=== PATIENT | female | born 1985 | race Caucasian/White ===

== ENCOUNTER 2018-01-06 17:02 | Inpatient (IN) | payer SELFPAY ==
[~2018-01-06] VITALS: Ht 154.9 cm; Wt 88.0 kg
[2018-01-06 17:46] LABS: BILIRUBIN,URINE NEGATIVE (NEGATIVE); CLARITY,URINE CLOUDY (CLEAR); COLOR,URINE RED (YELLOW); KETONES,URINE NEGATIVE (NEGATIVE); LEUKOCYTE ESTERASE ,URINE NEGATIVE (NEGATIVE); NITRITE,URINE NEGATIVE (NEGATIVE); PREGNANCY TEST, URINE NEGATIVE (NEGATIVE); PROTEIN,URINE DIPSTICK 1+ (NEGATIVE); URINE UROBILINOGEN 0.2 mg/dL (0.2 - 1)
[2018-01-06 17:47] LABS: BASOPHILS % 0.2 % (0.0-1.0); EOSINOPHILS # (AUTO) 0.1 (0.0-0.4); EOSINOPHILS % 1.2 % (0.0-6.0); HEMATOCRIT 37.5 % (34.2-44.1); HEMOGLOBIN 12.7 g/dL (12.0-16.0); LYMPHOCYTES # (AUTO) 1.6 (1.0-3.2); LYMPHOCYTES % 17.3 % (18.0-39.1); MEAN CORPUSCULAR HEMOGLOBIN 30.8 pg (28-32); MEAN CORPUSCULAR HGB CONC 33.9 g/dL (31-35); MEAN CORPUSCULAR VOLUME 90.8 fL (81-99); MONOCYTES # (AUTO) 0.7 (0.2-0.8); MONOCYTES % 7.3 % (4.4-11.3); NEUTROPHILS # (AUTO) 6.9 (2.1-6.9); NEUTROPHILS % 73.7 % (38.7-80.0); PLATELET COUNT 169 x10e3/uL (140-360); RED BLOOD COUNT 4.13 x10e6/uL (3.6-5.1); RED CELL DISTRIBUTION WIDTH 13.5 % (11.7-14.4)
[2018-01-06 17:55] LABS: BACTERIA,URINE RARE /HPF; MUCUS,URINE RARE (RARE); RBC,URINE >50 /HPF (0-5); WBC,URINE (MAN) 0-5 /HPF (0-5)
[2018-01-06] MEDS ORDERED: ONDANSETRON HCL INJ 2 MG/ML VIAL IV STA (18:00)
[2018-01-06] MEDS ORDERED: MORPHINE SULFATE INJ 4 MG/ML INJ IV STA (18:00)
[2018-01-06] MEDS ORDERED: SODIUM CHLORIDE 0.9% 1000ML 1,000 ML IV STA (18:00)
[2018-01-06 18:01] LABS: ALANINE AMINOTRANSFERASE 17 IU/L (0-55); ALBUMIN 3.6 g/dL (3.5-5.0); ALBUMIN/GLOBULIN RATIO 1.2 (0.8-2.0); ALKALINE PHOSPHATASE 50 IU/L (40-150); AMYLASE 47 U/L (25-125); ANION GAP 10.6 mmol/L (8-16); BLOOD UREA NITROGEN 10 mg/dL (7-26); BUN/CREATININE RATIO 13 (6-25); CALCIUM 8.5 mg/dL (8.4-10.2); CARBON DIOXIDE 26 mmol/L (22-29); CHLORIDE 109 mmol/L (98-107); CREATININE, SERUM 0.76 mg/dL (0.57-1.11); EST GLOMERULAR FILTRATION RATE > 60 ML/MIN (60-); GLUCOSE 106 mg/dL (74-118); LIPASE 22 U/L (8-78); POTASSIUM 3.6 mmol/L (3.5-5.1); SODIUM 142 mmol/L (136-145)
[2018-01-06] MEDS ORDERED: KETOROLAC TROMETHAMINE 30 MG/ML VIAL IV STA (18:29)
--- NOTE | 2018-01-06 20:21 | Diagnostic Imaging Report ---
EXAM: CT Abdomen and Pelvis WITH contrast INDICATION: \S\r/o appy \[id number] \S\[id number] COMPARISON: None. TECHNIQUE: Abdomen and pelvis were scanned utilizing a multidetector helical scanner from the lung base to the pubic symphysis after administration of IV contrast. Coronal and sagittal reformations were obtained. Routine protocol was performed. Scan was performed when during portal venous phase. IV CONTRAST: 100 mL of Isovue-370 ORAL CONTRAST: Water COMPLICATIONS: None RADIATION DOSE: Total DLP: ... mGy*cm Estimated effective dose: (DLP x 0.015 x size factor) mSv CTDIvol has been reviewed. It is below the limits set by the Radiation Protocol Committee (RPC). FINDINGS: LINES and TUBES: None. LOWER THORAX: Unremarkable HEPATOBILIARY: No focal hepatic lesions. No biliary ductal dilation. GALLBLADDER: No radio-opaque stones or sludge. No wall thickening. SPLEEN: No splenomegaly. PANCREAS: No focal masses or ductal dilatation. ADRENALS: No adrenal nodules KIDNEYS/URETERS: Kidneys enhance symmetrically. No hydronephrosis. No cystic or solid mass lesions. No stones. GI TRACT: No abnormal distention, wall thickening, or evidence of bowel obstruction. Appendix is mildly dilated (coronal image 31) measuring 9 mm in diameter and appears fluid filled. Mild periappendiceal inflammatory changes and fluid. PELVIC ORGANS/BLADDER: Unremarkable. LYMPH NODES: No lymphadenopathy. VESSELS: Unremarkable. PERITONEUM / RETROPERITONEUM: Trace free fluid in the anterior cul-de-sac. No free air. BONES: Unremarkable. SOFT TISSUES: Unremarkable. IMPRESSION: Acute uncomplicated appendicitis. Findings discussed with Dr. Bartlett on 01/06/2018 at 8:13 PM. Signed by: DR. Charles Marrero MD on 01/06/2018 8:17 PM
[2018-01-06] MEDS ORDERED: MORPHINE SULFATE 2 MG/ML SYR IV PRN (20:30)
[2018-01-06] MEDS ORDERED: LEVOFLOXACIN 500MG/D5W 100ML 100 ML IV SCH (20:45)
[2018-01-06] MEDS: SODIUM CHLORIDE 0.9% 1000ML 1,000 ML IV SCH (21:29)
[2018-01-06] MEDS: ONDANSETRON HCL INJ 2 MG/ML VIAL IV PRN (21:44)
[2018-01-06 21:48] VITALS: BP 117/61
[2018-01-06] MEDS: HYDROMORPHONE 1MG/1ML INJ IV PRN (22:00)
[2018-01-06] MEDS ORDERED: PIPER-TAZ 3.375 GM / NS 50ML IV SCH (22:00)
[2018-01-06] MEDS: MORPHINE SULFATE INJ 4 MG/ML INJ IV PRN (23:02)
[2018-01-07] VITALS (7 sets, daily range): BP systolic 99–117; BP diastolic 59–80
[2018-01-07] MEDS ORDERED: IOPAMIDOL 370 MG/ML 200 ML INFUS..BTL INJ ONE (00:36)
[2018-01-07] MEDS ORDERED: SODIUM CHLORIDE 0.9% 50ML 50 ML ONE (00:36)
[2018-01-07] MEDS: ONDANSETRON HCL INJ 2 MG/ML VIAL IV PRN ×5 (02:14→22:47)
[2018-01-07] MEDS: HYDROMORPHONE 1MG/1ML INJ IV PRN ×5 (02:14→22:47)
[2018-01-07] MEDS: MORPHINE SULFATE INJ 4 MG/ML INJ IV PRN ×2 (03:39→08:40)
[2018-01-07 05:52] LABS: BASOPHILS % 0.1 % (0.0-1.0); EOSINOPHILS # (AUTO) 0.1 (0.0-0.4); EOSINOPHILS % 0.6 % (0.0-6.0); HEMATOCRIT 35.8 % (34.2-44.1); HEMOGLOBIN 11.7 g/dL (12.0-16.0); LYMPHOCYTES # (AUTO) 1.2 (1.0-3.2); LYMPHOCYTES % 11.6 % (18.0-39.1); MEAN CORPUSCULAR HEMOGLOBIN 30.5 pg (28-32); MEAN CORPUSCULAR HGB CONC 32.7 g/dL (31-35); MEAN CORPUSCULAR VOLUME 93.2 fL (81-99); MONOCYTES # (AUTO) 0.9 (0.2-0.8); MONOCYTES % 8.2 % (4.4-11.3); NEUTROPHILS # (AUTO) 8.2 (2.1-6.9); NEUTROPHILS % 79.1 % (38.7-80.0); PLATELET COUNT 156 x10e3/uL (140-360); RED BLOOD COUNT 3.84 x10e6/uL (3.6-5.1); RED CELL DISTRIBUTION WIDTH 13.8 % (11.7-14.4)
[2018-01-07] MEDS: SODIUM CHLORIDE 0.9% 1000ML 1,000 ML IV SCH ×4 (06:17→23:30)
[2018-01-07 06:19] LABS: ALANINE AMINOTRANSFERASE 15 IU/L (0-55); ALBUMIN 3.4 g/dL (3.5-5.0); ALKALINE PHOSPHATASE 49 IU/L (40-150); ANION GAP 11.9 mmol/L (8-16); BLOOD UREA NITROGEN 9 mg/dL (7-26); BUN/CREATININE RATIO 12 (6-25); CALCIUM 8.4 mg/dL (8.4-10.2); CARBON DIOXIDE 26 mmol/L (22-29); CHLORIDE 104 mmol/L (98-107); CREATININE, SERUM 0.75 mg/dL (0.57-1.11); EST GLOMERULAR FILTRATION RATE > 60 ML/MIN (60-); GLUCOSE 110 mg/dL (74-118); POTASSIUM 3.9 mmol/L (3.5-5.1); SODIUM 138 mmol/L (136-145)
[2018-01-07 06:34] LABS: ALBUMIN/GLOBULIN RATIO 1.1 (0.8-2.0)
--- NOTE | 2018-01-07 06:36 | Consultation ---
DATE OF CONSULTATION: January 07, 2018 HISTORY OF PRESENT ILLNESS: Patient is a 32-year-old female, who presents with complaint of abdominal pain. She has had pain a few days ago. She went to emergency room and was sent home. Pain, however, worsened yesterday and she came back to a different emergency room. Evaluation of CT scan of the abdomen and pelvis revealed findings suggestive of acute appendicitis. Patient says the pain is localized in right lower quadrant associated with nausea and vomiting. PAST MEDICAL HISTORY: Otherwise unremarkable. She has no chronic medical problems. No previous surgery. CURRENT MEDICATIONS: There are none. ALLERGIES: SHE HAS ALLERGY TO PENICILLIN, WHICH SHE SAYS CAUSED ANAPHYLACTIC REACTION. FAMILY HISTORY: Noncontributory. SOCIAL HISTORY: The patient smokes cigarettes about 3 cigarettes a day, formerly smoked 2 packs per day. She does not drink alcohol. REVIEW OF SYSTEMS: As stated above otherwise. She has had no fever, no weight loss. EXAM VITALS: Normal. She is afebrile. GENERAL: The patient is awake and alert, in no distress. HEENT: Unremarkable. Sclerae are nonicteric. NECK: No masses. LUNGS: Equal breath sounds are clear bilaterally. CARDIAC: Regular rate and rhythm. Normal S1, S2. Without murmur, S3, S4. There is no jugular venous distention. ABDOMEN: Tender in right lower quadrant with signs of peritonitis localized to right lower quadrant. There is no mass. There is no organomegaly. EXTREMITIES: No edema. Pulses are palpable. NEUROLOGIC: Grossly intact. LAB TESTS: The white blood cell count was normal with a slight left shift in differential. Hemoglobin and hematocrit are normal. Chemistries were normal. Urinalysis significant for blood in the urine. ASSESSMENT: A 32-year-old female with findings most suggestive of acute appendicitis. She will likely benefit from appendectomy. PLAN: To schedule for today. Procedure was explained to the patient including risks, benefits, and alternatives. She understands the procedures. She has had the opportunity to ask questions. She is aware of the possible need for open surgery. Thank you for asking me to see Ms. Cabrera. Job#: [id number] CQ
[2018-01-07] MEDS: METRONIDAZOLE 500MG/NS 100ML 100 ML IV SCH ×3 (09:00→17:25)
[2018-01-07] MEDS: FAMOTIDINE 20 MG/2 ML VIAL IV SCH ×2 (10:57→17:02)
[2018-01-07] MEDS ORDERED: MIDAZOLAM HCL 2 MG/2 ML VIAL ONE (11:02)
[2018-01-07] MEDS ORDERED: FENTANYL CITRATE/PF 100MCG/2 ML INJ ONE (11:02)
[2018-01-07] MEDS ORDERED: ONDANSETRON HCL INJ 2 MG/ML VIAL ONE (11:11)
[2018-01-07] MEDS ORDERED: KETOROLAC TROMETHAMINE 30 MG/ML VIAL ONE (11:11)
[2018-01-07] MEDS ORDERED: DEXAMETHASONE SOD PHOS INJ 4 MG/ML VIAL ONE (11:11)
[2018-01-07] MEDS ORDERED: LIDOCAINE HCL 2% LOCAL INJ 5 ML SDV VIAL INJ ONE (11:11)
[2018-01-07] MEDS ORDERED: SEVOFLURANE INHAL SOLN 250 ML PEN BTL ONE (11:11)
[2018-01-07] MEDS ORDERED: ROCURONIUM BROMIDE 10 MG/ML 5ML VIAL ONE (11:11)
[2018-01-07] MEDS ORDERED: PROPOFOL IV EMULSION 10 MG/ML 20 ML VIAL ONE (11:11)
[2018-01-07] MEDS ORDERED: BUPIVACAINE HCL 0.5% INJ 30 ML VIAL INJ ONE (15:01)
[2018-01-07] MEDS ORDERED: MORPHINE SULFATE 5 MG/ML VIAL IV PRN (15:45)
[2018-01-07] MEDS ORDERED: LEVOFLOXACIN 500MG/D5W 100ML 100 ML IV SCH (16:00)
--- NOTE | 2018-01-07 16:47 | Operative Report ---
DATE OF PROCEDURE: January 07, 2018 PREOPERATIVE DIAGNOSIS: Acute appendicitis. POSTOPERATIVE DIAGNOSIS: Acute appendicitis. PROCEDURE PERFORMED: Diagnostic laparoscopy, laparoscopic appendectomy. FLATWORK PRESSER: None. ANESTHESIA: General. INDICATIONS AND FINDINGS: Patient a 32-year-old female who presented with complaint of abdominal pain that she had for about 3 days localized to right lower quadrant. Evaluation suggested acute appendicitis. At surgery, the patient had an appendix that was mildly erythematous, mildly dilated and there was also some purulent fluid in the pelvis. TECHNIQUE: After adequate general endotracheal anesthesia with the patient in the supine position, the abdomen was prepped and draped in sterile fashion with Lv solution. Skin in the umbilicus was infiltrated with 1/2% Marcaine. Incision was made in the umbilicus. Abdominal wall was elevated and Veress needle was introduced. Pneumoperitoneum was then created. A 10 mm trocar and cannula was then passed through the umbilical wound. Laparoscopic camera was introduced. Initial laparoscopy revealed some purulent fluid in the pelvis. Liver and stomach appeared normal. Small bowel was seen and appeared normal. A 12 mm trocar and cannula was placed suprapubically and a 5 mm trocar and cannula placed in the right upper quadrant. These were placed under direct vision. Cecum was elevated and the appendix was identified. Appendix appeared mildly erythematous, mildly dilated. A window was created between the base of the appendix and mesoappendix. Base of the appendix was divided close to the cecum with Endo KAREEM stapler. Mesoappendix also divided with Endo KAREEM stapler. Hemostasis at each staple line was seen to be adequate. Appendix was placed into an Endo pouch and brought out through the suprapubic cannula. Inspection of the abdomen revealed some purulent fluid in the pelvis. This was aspirated. The right tube and ovary appeared normal. There were no abnormalities of small bowel or small bowel mesentery. The peritoneal cavity was irrigated with saline. All fluid aspirated and inspected for hemostasis which was seen to be adequate. Irrigated once again with saline. All fluid aspirated from below the liver from right side of the abdomen and from the pelvis was inspected once again for hemostasis which was seen to be adequate. Instruments and cannulas were then removed. Pneumoperitoneum was evacuated. Wounds were then closed. Fascia in the umbilical and suprapubic wound closed with 0 Vicryl. Skin to all wounds closed with adonis. Sterile dressings applied to each wound. Patient tolerated procedure well. Estimated blood loss was 10 mL. There were no complications. All counts were correct. Patient was taken to the recovery room satisfactory condition. Job#: [id number] GH cc:CHESTER LIN MD
[2018-01-07] MEDS: NICOTINE 7 MG PATCH TOP SCH (18:30)
[2018-01-07] MEDS: MORPHINE SULFATE 2 MG/ML SYR IV PRN (20:00)
[2018-01-08] VITALS: BP 107/65
[2018-01-08] MEDS: METRONIDAZOLE 500MG/NS 100ML 100 ML IV SCH ×3 (00:20→12:23)
[2018-01-08] MEDS: MORPHINE SULFATE 2 MG/ML SYR IV PRN (01:15)
[2018-01-08 03:30] LABS: HEMATOCRIT 33.7 % (34.2-44.1); HEMOGLOBIN 11.3 g/dL (12.0-16.0); LYMPHOCYTES # (AUTO) 0.7 (1.0-3.2); LYMPHOCYTES % 10.2 % (18.0-39.1); MEAN CORPUSCULAR HEMOGLOBIN 31.4 pg (28-32); MEAN CORPUSCULAR HGB CONC 33.5 g/dL (31-35); MEAN CORPUSCULAR VOLUME 93.6 fL (81-99); MONOCYTES # (AUTO) 0.4 (0.2-0.8); MONOCYTES % 5.1 % (4.4-11.3); NEUTROPHILS # (AUTO) 5.8 (2.1-6.9); NEUTROPHILS % 84.6 % (38.7-80.0); PLATELET COUNT 147 x10e3/uL (140-360); RED CELL DISTRIBUTION WIDTH 13.7 % (11.7-14.4)
[2018-01-08 03:42] LABS: BLOOD UREA NITROGEN 8 mg/dL (7-26); BUN/CREATININE RATIO 11 (6-25); CALCIUM 8.8 mg/dL (8.4-10.2); CARBON DIOXIDE 25 mmol/L (22-29); CHLORIDE 109 mmol/L (98-107); CREATININE, SERUM 0.76 mg/dL (0.57-1.11); EST GLOMERULAR FILTRATION RATE > 60 ML/MIN (60-); GLUCOSE 112 mg/dL (74-118); MAGNESIUM 1.9 MG/DL (1.3-2.1); SODIUM 140 mmol/L (136-145)
[2018-01-08] MEDS: ONDANSETRON HCL INJ 2 MG/ML VIAL IV PRN (03:44)
[2018-01-08 04:00] VITALS: BP 115/78
[2018-01-08 04:23] LABS: CREATINE KINASE 163 IU/L (29-168)
[2018-01-08 08:00] VITALS: BP 122/66
[2018-01-08] MEDS: FAMOTIDINE 20 MG/2 ML VIAL IV SCH (08:05)
[2018-01-08] MEDS: NICOTINE 7 MG PATCH TOP SCH (08:06)
[2018-01-08 08:12] VITALS: BP 122/66
[2018-01-08] MEDS: HYDROCODONE/APAP 5MG-325MG TAB PO PRN ×2 (08:15→12:32)
[2018-01-08] MEDS: SODIUM CHLORIDE 0.9% 1000ML 1,000 ML IV SCH (11:12)
[2018-01-08] MEDS ORDERED: TYLENOL # 31 EA PO (12:40)
[2018-01-08 12:57] VITALS: BP 122/73
--- NOTE | 2018-01-09 03:55 | Discharge Summary ---
ADMISSION DIAGNOSIS: Appendicitis. DISCHARGE DIAGNOSIS: Appendicitis. Patient has no previous medical history and no surgical history. HOSPITAL COURSE: A 32-year-old female complains of right lower quadrant abdominal pain that began yesterday. Throughout the day, the pain continued to worsen; so, she came to the ER. Upon arrival to the ER, patient had a CAT scan which showed acute uncomplicated appendicitis. Surgery was consulted. Patient started on IV antibiotics and fluids. Patient went in for surgery on January 07, 2018, and had a laparoscopic appendectomy. After the surgery, patient tolerated p.o. well and is passing gas and has already had a bowel movement. Patient is cleared for discharge per surgery and will follow up as discussed. She will also follow up with primary care in 1 to 2 weeks. Patient understands discharge instructions and followup and agrees to plan. Vital signs stable. Patient afebrile. Dictated by Pinky Wilhelm NP CHESTER LIN MD Job#: [id number]
== END 2018-01-08 13:56 | disposition home or self-care (01) | DRG 343 ==
LOC: ER 17:02 → ERHOLD 20:17 → MED/SURG 22:50
PROVIDERS: ADMIT Internal Medicine; ATTEND Internal Medicine
PROC: 0DTJ4ZZ Resection of Appendix, Percutaneous Endoscopic Approach (ICD-10-PCS; principal; 2018-01-07 16:00)
DX: K35.80 Unspecified acute appendicitis (principal); E88.09 Other disorders of plasma-protein metabolism, not elsewhere classified; I95.9 Hypotension, unspecified; F17.210 Nicotine dependence, cigarettes, uncomplicated; Z88.0 Allergy status to penicillin
CPT/HCPCS: 36415; 74177; 80048; 80053; 81001; 81025; 82150; 82550; 82553; 83690; 83735; 84484; 85025; 88304; 93041; 99284; J1100; J1170; J1885; J1956; J2001; J2250; J2270; J2405; J7030; Q9967

== ENCOUNTER 2018-01-25 07:58 | Emergency (ER) | payer SELFPAY ==
[~2018-01-25 07:58] MED LIST: TYLENOL # 31 EA PO
== END 2018-01-25 08:20 | disposition left against medical advice (07) ==
LOC: ER 08:00
DX: M54.5 Low back pain (principal)

== ENCOUNTER 2018-02-25 23:10 | Emergency (ER) | payer SELFPAY ==
[~2018-02-25] VITALS: Ht 154.9 cm; Wt 88.0 kg
[2018-02-25] MEDS ORDERED: IBUPROFEN 200 MG TAB PO STA (23:36)
[2018-02-25] MEDS ORDERED: ACETAMINOPHEN 325 MG TAB PO ONE (23:45)
[2018-02-25] MEDS ORDERED: ONDANSETRON HCL 4 MG ORAL DISINTEGRATING TAB PO ONE (23:45)
[2018-02-25 23:59] LABS: BILIRUBIN,URINE NEGATIVE (NEGATIVE); CLARITY,URINE CLEAR (CLEAR); COLOR,URINE YELLOW (YELLOW); KETONES,URINE NEGATIVE (NEGATIVE); LEUKOCYTE ESTERASE ,URINE NEGATIVE (NEGATIVE); NITRITE,URINE NEGATIVE (NEGATIVE); PROTEIN,URINE DIPSTICK NEGATIVE (NEGATIVE); URINE UROBILINOGEN 0.2 mg/dL (0.2 - 1)
[2018-02-26] LABS: EPITHELIAL CELLS,URINE FEW /LPF; RBC,URINE 0-5 /HPF (0-5); WBC,URINE (MAN) 0-5 /HPF (0-5)
[2018-02-26 00:23] VITALS: BP 114/76
[2018-02-26] MEDS ORDERED: CEFTRIAXONE SOD 1 GM VIAL IM ONE (00:30)
[2018-02-26] MEDS: LIDOCAINE HCL 1% LOCAL INJ 20 ML VIAL INJ ONE ×2 (01:55→01:56)
[2018-02-26] MEDS ORDERED: LIDOCAINE HCL 1% 2 ML AMP ONE (01:58)
[2018-02-26] MEDS ORDERED: LIDOCAINE 1% 5ML-MPF INJ ONE (02:00)
== END 2018-02-26 01:18 | disposition home or self-care (01) ==
LOC: ER 23:10
DX: R30.0 Dysuria (principal); R31.9 Hematuria, unspecified; R10.2 Pelvic and perineal pain
CPT/HCPCS: 81001; 81025; 99283; J0696; J2001

== ENCOUNTER 2018-03-31 07:34 | Emergency (ER) | payer SELFPAY ==
[~2018-03-31] VITALS: Ht 154.9 cm; Wt 88.0 kg
--- NOTE | 2018-03-31 09:35 | Diagnostic Imaging Report ---
PROCEDURE:X-RAY LEFT KNEE, THREE OR MORE VIEWS COMPARISON:None. INDICATIONS:LEFT KNEE PAIN FINDINGS: The bones are well-mineralized. There are no fractures, subluxations, lytic or blastic lesions. There is no evidence of a joint effusion. CONCLUSION: Unremarkable left knee radiographs. Dictated by: RUTHIE DICKINSON M.D. on 03/31/2018 at 9:43 Electronically approved by: RUTHIE DICKINSON M.D. on 03/31/2018 at 9:43
== END 2018-03-31 10:03 | disposition left against medical advice (07) ==
LOC: ER 07:34
DX: M25.562 Pain in left knee (principal)
CPT/HCPCS: 81025; 99283

== ENCOUNTER 2018-05-21 23:12 | Emergency (ER) | payer SELFPAY ==
[~2018-05-21] VITALS: Ht 154.9 cm; Wt 85.3 kg
== END 2018-05-22 00:30 | disposition left against medical advice (07) ==
LOC: ER 23:12
DX: R11.10 Vomiting, unspecified (principal)
CPT/HCPCS: 99282

== ENCOUNTER 2018-09-05 19:54 | Emergency (ER) | payer OTHER ==
[~2018-09-05] VITALS: Ht 154.9 cm; Wt 85.3 kg
== END 2018-09-05 20:20 | disposition home or self-care (01) ==
LOC: FSED 19:54
DX: M54.5 Low back pain (principal)
CPT/HCPCS: 99283

== ENCOUNTER 2018-12-08 19:59 | Emergency (ER) | payer SELFPAY ==
[~2018-12-08] VITALS: Ht 154.9 cm; Wt 85.3 kg
[2018-12-08] MEDS ORDERED: PANTOPRAZOLE 40 MG 10ML VIAL IV NR (20:30)
[2018-12-08] MEDS ORDERED: KETOROLAC TROMETHAMINE 30 MG/ML VIAL IV NR (20:30)
[2018-12-08] MEDS ORDERED: SODIUM CHLORIDE 0.9% 1000ML 1,000 ML IV ONE (20:30)
[2018-12-08 20:43] LABS: BASOPHILS % 0.1 % (0.0-1.0); EOSINOPHILS # (AUTO) 0.3 (0.0-0.4); EOSINOPHILS % 2.9 % (0.0-6.0); HEMATOCRIT 40.8 % (34.2-44.1); HEMOGLOBIN 13.9 g/dL (12.0-16.0); LYMPHOCYTES # (AUTO) 2.8 (1.0-3.2); LYMPHOCYTES % 31.3 % (18.0-39.1); MEAN CORPUSCULAR HEMOGLOBIN 30.8 pg (28-32); MEAN CORPUSCULAR HGB CONC 34.1 g/dL (31-35); MEAN CORPUSCULAR VOLUME 90.5 fL (81-99); MONOCYTES # (AUTO) 0.6 (0.2-0.8); MONOCYTES % 6.9 % (4.4-11.3); NEUTROPHILS # (AUTO) 5.2 (2.1-6.9); NEUTROPHILS % 58.6 % (38.7-80.0); PLATELET COUNT 192 x10e3/uL (140-360); RED BLOOD COUNT 4.51 x10e6/uL (3.6-5.1); RED CELL DISTRIBUTION WIDTH 13.4 % (11.7-14.4)
[2018-12-08 21:10] LABS: ALANINE AMINOTRANSFERASE 21 IU/L (0-55); ALBUMIN/GLOBULIN RATIO 1.2 (0.8-2.0); ALKALINE PHOSPHATASE 57 IU/L (40-150); AMYLASE 53 U/L (25-125); ANION GAP 14.8 mmol/L (8-16); BLOOD UREA NITROGEN 13 mg/dL (7-26); BUN/CREATININE RATIO 17 (6-25); CALCIUM 9.6 mg/dL (8.4-10.2); CARBON DIOXIDE 23 mmol/L (22-29); CHLORIDE 105 mmol/L (98-107); CREATININE, SERUM 0.78 mg/dL (0.57-1.11); EST GLOMERULAR FILTRATION RATE > 60 ML/MIN (60-); GLUCOSE 117 mg/dL (74-118); LIPASE 31 U/L (8-78); POTASSIUM 3.8 mmol/L (3.5-5.1); SODIUM 139 mmol/L (136-145)
[2018-12-08] MEDS ORDERED: CIPROFLOXACIN250 MG PO (21:47)
[2018-12-08] MEDS ORDERED: FLAGYL500 MG PO (21:47)
[2018-12-08] MEDS ORDERED: ZOFRAN8 MG PO (21:50)
== END 2018-12-08 21:59 | disposition home or self-care (01) ==
LOC: ER 19:59
DX: R10.32 Left lower quadrant pain (principal); R10.84 Generalized abdominal pain; R19.7 Diarrhea, unspecified
CPT/HCPCS: 36415; 80053; 81025; 82150; 83690; 85025; 96374; 99283; C9113; J1885; J7030

== ENCOUNTER 2018-12-11 20:09 | Emergency (ER) | payer SELFPAY ==
[~2018-12-11] VITALS: Ht 154.9 cm; Wt 99.8 kg
[~2018-12-11 20:09] MED LIST changes: +CIPROFLOXACIN250 MG PO; +FLAGYL500 MG PO; +ZOFRAN8 MG PO
[2018-12-11] MEDS ORDERED: DICYCLOMINE HCL 20 MG/2 ML VIAL IM ONE (21:00)
[2018-12-11] MEDS ORDERED: KETOROLAC TROMETHAMINE 60 MG/2 ML VIAL IM ONE (21:00)
[2018-12-11 21:33] LABS: BASOPHILS % 0.3 % (0.0-1.0); EOSINOPHILS # (AUTO) 0.2 (0.0-0.4); EOSINOPHILS % 3.3 % (0.0-6.0); HEMATOCRIT 37.6 % (34.2-44.1); HEMOGLOBIN 12.8 g/dL (12.0-16.0); LYMPHOCYTES # (AUTO) 2.2 (1.0-3.2); MEAN CORPUSCULAR HEMOGLOBIN 30.8 pg (28-32); MEAN CORPUSCULAR VOLUME 90.4 fL (81-99); MONOCYTES # (AUTO) 0.7 (0.2-0.8); MONOCYTES % 10.5 % (4.4-11.3); NEUTROPHILS # (AUTO) 3.2 (2.1-6.9); NEUTROPHILS % 50.7 % (38.7-80.0); PLATELET COUNT 180 x10e3/uL (140-360); RED BLOOD COUNT 4.16 x10e6/uL (3.6-5.1); RED CELL DISTRIBUTION WIDTH 13.2 % (11.7-14.4)
[2018-12-11 21:52] LABS: ALANINE AMINOTRANSFERASE 24 IU/L (0-55); ALBUMIN 3.9 g/dL (3.5-5.0); ALBUMIN/GLOBULIN RATIO 1.3 (0.8-2.0); ALKALINE PHOSPHATASE 49 IU/L (40-150); ANION GAP 10.6 mmol/L (8-16); BLOOD UREA NITROGEN 16 mg/dL (7-26); BUN/CREATININE RATIO 21 (6-25); CARBON DIOXIDE 24 mmol/L (22-29); CHLORIDE 106 mmol/L (98-107); CREATININE, SERUM 0.77 mg/dL (0.57-1.11); EST GLOMERULAR FILTRATION RATE > 60 ML/MIN (60-); GLUCOSE 100 mg/dL (74-118); POTASSIUM 3.6 mmol/L (3.5-5.1); SODIUM 137 mmol/L (136-145)
[2018-12-11 22:04] LABS: BILIRUBIN,URINE NEGATIVE (NEGATIVE); CLARITY,URINE CLEAR (CLEAR); COLOR,URINE YELLOW (YELLOW); KETONES,URINE NEGATIVE (NEGATIVE); LEUKOCYTE ESTERASE ,URINE NEGATIVE (NEGATIVE); NITRITE,URINE NEGATIVE (NEGATIVE); PROTEIN,URINE DIPSTICK NEGATIVE (NEGATIVE); URINE UROBILINOGEN 0.2 mg/dL (0.2 - 1)
[2018-12-11 22:12] LABS: AMYLASE 52 U/L (25-125); LIPASE 30 U/L (8-78)
[2018-12-11 23:00] LABS: BACTERIA,URINE FEW /HPF; EPITHELIAL CELLS,URINE FEW /LPF; WBC,URINE (MAN) 0-5 /HPF (0-5)
--- NOTE | 2018-12-12 | Diagnostic Imaging Report ---
CT Abdomen and Pelvis without contrast INDICATION: Lower abdominal pain TECHNIQUE: Thin collimation axial images obtained from the diaphragm to the level of the pubic symphysis without nonionic intravenous contrast. Oral contrast was administered. Dose reduction techniques used: Automated exposure control, adjustment of the mAs and/or kVp according to patient size, standardized low-dose protocol, and/or iterative reconstruction technique. RADIATION DOSE: Total DLP: 659.27 mGy*cm Estimated effective dose: (DLP x 0.015 x size factor) mSv CTDIvol has been reviewed. It is below the limits set by the Radiation Protocol Committee (RPC). COMPARISON: CT abdomen/pelvis 05/09/2018. ABDOMEN FINDINGS: Lung Bases: Clear. The visualized portion of the mediastinum is normal. Liver: Normal in attenuation without mass. Gallbladder: Present and appears normal. No ductal dilatation. Pancreas: Normal attenuation without mass. Spleen: Normal size without mass. Adrenal Glands: No evidence for mass. Kidneys: Right: No renal calculus. No cortical mass or hydronephrosis Left: No renal calculus. No cortical mass or hydronephrosis Lymph Nodes: No enlarged abdominal or periaortic lymph nodes. Aorta: Normal in diameter. PELVIS FINDINGS: Bowel: Stomach: Normal. Small Bowel: Enteric contrast present throughout. No mural thickening or dilatation. Large Bowel: Moderate burden of stool throughout. No enteric contrast. No diverticulosis. Appendix: Absent. Bladder: Under distended. Ureters: No ureteral dilatation. Uterus: Present and normal in morphology. No adnexal mass. Peritoneum/retroperitoneum: No free fluid or fluid collection Soft tissues: Unremarkable.. Bones: Unremarkable for age. IMPRESSION: 1. No evidence for bowel obstruction or inflammation. Moderate burden of stool throughout the large bowel. Please correlate with signs/symptoms of constipation. 2. No evidence of renal calculus or obstructive uropathy. Signed by: Dr. Jose Allred MD on 12/11/2018 11:57 PM
[2018-12-12 00:24] VITALS: BP 111/72
== END 2018-12-12 00:33 | disposition home or self-care (01) ==
LOC: ER 20:09
DX: R10.32 Left lower quadrant pain (principal); R10.31 Right lower quadrant pain; K59.00 Constipation, unspecified
CPT/HCPCS: 36415; 80053; 74176; 81001; 81025; 82150; 83690; 85025; 99284; J0500; J1885

== ENCOUNTER 2018-12-24 21:51 | Emergency (ER) | payer SELFPAY ==
[~2018-12-24] VITALS: Ht 154.9 cm; Wt 99.8 kg
[2018-12-24] MEDS ORDERED: KETOROLAC TROMETHAMINE 30 MG/ML VIAL IV STA (22:04)
[2018-12-24] MEDS ORDERED: DICYCLOMINE HCL 20 MG/2 ML VIAL IM ONE (22:15)
[2018-12-24 22:41] LABS: BASOPHILS % 0.2 % (0.0-1.0); EOSINOPHILS # (AUTO) 0.2 (0.0-0.4); EOSINOPHILS % 2.3 % (0.0-6.0); HEMATOCRIT 38.9 % (34.2-44.1); HEMOGLOBIN 13.1 g/dL (12.0-16.0); LYMPHOCYTES # (AUTO) 2.4 (1.0-3.2); LYMPHOCYTES % 36.4 % (18.0-39.1); MEAN CORPUSCULAR HGB CONC 33.7 g/dL (31-35); MONOCYTES # (AUTO) 0.6 (0.2-0.8); MONOCYTES % 8.6 % (4.4-11.3); NEUTROPHILS # (AUTO) 3.4 (2.1-6.9); NEUTROPHILS % 52.2 % (38.7-80.0); PLATELET COUNT 194 x10e3/uL (140-360); RED BLOOD COUNT 4.23 x10e6/uL (3.6-5.1); RED CELL DISTRIBUTION WIDTH 13.2 % (11.7-14.4)
[2018-12-24 22:56] LABS: ALANINE AMINOTRANSFERASE 21 IU/L (0-55); ALBUMIN/GLOBULIN RATIO 1.4 (0.8-2.0); ALKALINE PHOSPHATASE 60 IU/L (40-150); ANION GAP 14.7 mmol/L (8-16); BLOOD UREA NITROGEN 16 mg/dL (7-26); CALCIUM 9.3 mg/dL (8.4-10.2); CARBON DIOXIDE 26 mmol/L (22-29); CHLORIDE 103 mmol/L (98-107); GLUCOSE 101 mg/dL (74-118); POTASSIUM 3.7 mmol/L (3.5-5.1)
[2018-12-24 22:58] LABS: AMYLASE 57 U/L (25-125); SODIUM 140 mmol/L (136-145)
[2018-12-24 23:10] LABS: LIPASE 41 U/L (8-78)
[2018-12-24 23:19] LABS: BILIRUBIN,URINE NEGATIVE (NEGATIVE); CLARITY,URINE CLEAR (CLEAR); COLOR,URINE YELLOW (YELLOW); KETONES,URINE NEGATIVE (NEGATIVE); LEUKOCYTE ESTERASE ,URINE NEGATIVE (NEGATIVE); NITRITE,URINE NEGATIVE (NEGATIVE); PROTEIN,URINE DIPSTICK NEGATIVE (NEGATIVE); URINE UROBILINOGEN 0.2 mg/dL (0.2 - 1)
[2018-12-24 23:24] LABS: BACTERIA,URINE FEW /HPF; EPITHELIAL CELLS,URINE MODERATE /LPF; RBC,URINE 0-5 /HPF (0-5); WBC,URINE (MAN) 0-5 /HPF (0-5)
[2018-12-24 23:25] LABS: CALCIUM OXALATE CRYSTALS,UR FEW (FEW)
[2018-12-24 23:32] LABS: BUN/CREATININE RATIO 19 (6-25); CREATININE, SERUM 0.85 mg/dL (0.57-1.11); EST GLOMERULAR FILTRATION RATE > 60 ML/MIN (60-)
--- NOTE | 2018-12-24 23:36 | Diagnostic Imaging Report ---
Acute Abdominal Series CPT CODE: 70562 INDICATION: Left lower quadrant pain, left flank pain, diarrhea. COMPARISON: CT abdomen/pelvis 12/11/2018. FINDINGS: Single view of the chest shows no mass or infiltrate. Cardiac mediastinal silhouette is normal. Supine and erect views of the abdomen show unremarkable bowel gas pattern. No dilated bowel loops or air-fluid levels. No free air. No calcifications over the renal shadows or along the expected course of the ureters. Osseous structures are unremarkable.. IMPRESSION: 1. Unremarkable bowel gas pattern 2. Clear lungs Signed by: Dr. Jose Allred MD on 12/24/2018 11:33 PM
[2018-12-24 23:54] VITALS: BP 93/78
== END 2018-12-25 | disposition home or self-care (01) ==
LOC: ER 21:51
DX: R10.32 Left lower quadrant pain (principal); R19.7 Diarrhea, unspecified; Z87.19 Personal history of other diseases of the digestive system
CPT/HCPCS: 36415; 74022; 80053; 81001; 82150; 83690; 84702; 85025; 99284; J0500; J1885

== ENCOUNTER 2019-01-21 20:43 | Emergency (ER) | payer SELFPAY ==
[~2019-01-21] VITALS: Ht 154.9 cm; Wt 84.4 kg
[2019-01-21] MEDS ORDERED: HYDROCODONE/APAP 5MG-325MG TAB PO ONE (21:15)
[2019-01-21] MEDS ORDERED: HYDROCODONE/APAP 5MG-325MG TAB ONE (21:21)
[2019-01-21 21:50] VITALS: BP 112/82
== END 2019-01-21 21:58 | disposition home or self-care (01) ==
LOC: FSED 20:43
DX: G43.119 Migraine with aura, intractable, without status migrainosus (principal)
CPT/HCPCS: 99282

== ENCOUNTER 2019-07-31 04:49 | Emergency (ER) | payer SELFPAY ==
[~2019-07-31] VITALS: Ht 154.9 cm; Wt 84.4 kg
[~2019-07-31 04:49] MED LIST changes: +CLINDAMYCIN HC300 MG PO; +TYLENOL WITH C1 EACH PO
[2019-07-31] MEDS ORDERED: ONDANSETRON HCL INJ 2MG/ML 2ML 2 MG/ML VIAL IV STA (04:56)
[2019-07-31] MEDS ORDERED: SODIUM CHLORIDE 0.9% 1000ML 1,000 ML IV STA (04:56)
--- NOTE | 2019-07-31 05:23 | NUR ---
NOTIFIED [facility] [employer] REGARDING DOG SCRATCH, DISPATCHER SELWYN TOOK REPORT
[2019-07-31 05:25] LABS: BASOPHILS % 0.2 % (0.0-1.0); EOSINOPHILS # (AUTO) 0.2 (0.0-0.4); HEMOGLOBIN 13.2 g/dL (12.0-16.0); LYMPHOCYTES # (AUTO) 2.2 (1.0-3.2); MEAN CORPUSCULAR HEMOGLOBIN 30.1 pg (28-32); MEAN CORPUSCULAR VOLUME 91.3 fL (81-99); MONOCYTES # (AUTO) 0.5 (0.2-0.8); MONOCYTES % 9.1 % (4.4-11.3); NEUTROPHILS # (AUTO) 2.6 (2.1-6.9); NEUTROPHILS % 46.5 % (38.7-80.0); PLATELET COUNT 201 x10e3/uL (140-360); RED BLOOD COUNT 4.38 x10e6/uL (3.6-5.1); RED CELL DISTRIBUTION WIDTH 13.6 % (11.7-14.4)
--- NOTE | 2019-07-31 05:27 | NUR ---
[facility] [employer] CALLED BACK AND STATED THEY DO NOT NEED REPORTING PROCEDURE FOR DOG SCRATCH. MD NOTIFIED, NO FURTHER INTERVENTION NEEDED PER MD.
[2019-07-31 05:28] LABS: AMPHETAMINES SCREEN,URINE NEGATIVE (NEGATIVE); CLARITY,URINE CLEAR (CLEAR); COLOR,URINE YELLOW (YELLOW); PHENCYCLIDINE SCREEN,URINE NEGATIVE (NEGATIVE)
[2019-07-31 05:29] LABS: BENZODIAZEPINES SCREEN,URINE NEGATIVE (NEGATIVE); PREGNANCY TEST, URINE NEGATIVE (NEGATIVE)
[2019-07-31 05:32] LABS: KETONES,URINE NEGATIVE (NEGATIVE); LEUKOCYTE ESTERASE ,URINE NEGATIVE (NEGATIVE); NITRITE,URINE NEGATIVE (NEGATIVE); PROTEIN,URINE DIPSTICK NEGATIVE (NEGATIVE)
[2019-07-31 05:33] LABS: BILIRUBIN,URINE NEGATIVE (NEGATIVE); URINE UROBILINOGEN 0.2 mg/dL (0.2 - 1)
[2019-07-31 05:44] LABS: BACTERIA,URINE RARE /HPF; EPITHELIAL CELLS,URINE MODERATE /LPF; RBC,URINE 0-5 /HPF (0-5); WBC,URINE (MAN) 0-5 /HPF (0-5)
[2019-07-31 05:46] LABS: ALANINE AMINOTRANSFERASE 25 IU/L (0-55); ALBUMIN 3.8 g/dL (3.5-5.0); ALBUMIN/GLOBULIN RATIO 1.2 (0.8-2.0); ALKALINE PHOSPHATASE 52 IU/L (40-150); ANION GAP 13.8 mmol/L (8-16); BLOOD UREA NITROGEN 9 mg/dL (7-26); BUN/CREATININE RATIO 11 (6-25); CALCIUM 8.6 mg/dL (8.4-10.2); CARBON DIOXIDE 23 mmol/L (22-29); CHLORIDE 106 mmol/L (98-107); EST GLOMERULAR FILTRATION RATE > 60 ML/MIN (60-); GLUCOSE 108 mg/dL (74-118); LIPASE 28 U/L (8-78); POTASSIUM 3.8 mmol/L (3.5-5.1); SODIUM 139 mmol/L (136-145)
--- NOTE | 2019-07-31 06:57 | Diagnostic Imaging Report ---
EXAM: CT Abdomen and Pelvis WITHOUT contrast INDICATION: Abdominal pain. Fever. Vomiting. COMPARISON: 12/11/18. TECHNIQUE: Abdomen and pelvis were scanned utilizing a multidetector helical scanner from the lung base to the pubic symphysis without administration of IV contrast. Absence of intravenous contrast decreases sensitivity for detection of focal lesions and vascular pathology. Coronal and sagittal reformations were obtained. Routine protocol was performed. IV CONTRAST: None. ORAL CONTRAST: 900 cc Redicat. RADIATION DOSE: Total DLP: 646.74 mGy*cm Estimated effective dose: (DLP x 0.015 x size factor) mSv COMPLICATIONS: None FINDINGS: LINES and TUBES: None. LOWER THORAX: Unremarkable HEPATOBILIARY: No focal hepatic lesions. No biliary ductal dilation. GALLBLADDER: No radio-opaque stones or sludge. No wall thickening. SPLEEN: No splenomegaly. PANCREAS: No focal masses or ductal dilatation. ADRENALS: No adrenal nodules KIDNEYS/URETERS: No hydronephrosis. No cystic or solid mass lesions. Punctate nonobstructing calculus in the upper pole of the right kidney on image 24 series 2. Punctate nonobstructing calculus in the lower pole of the left kidney on coronal image 60.. GI TRACT: No abnormal distention, wall thickening, or evidence of bowel obstruction. Appendix is surgically absent. Moderate volume of stool throughout the colon. PELVIC ORGANS/BLADDER: Unremarkable. Vaginal tampon is incidentally noted. Tiny phleboliths scattered throughout the pelvis, unchanged. LYMPH NODES: No lymphadenopathy. VESSELS: Unremarkable. PERITONEUM / RETROPERITONEUM: No free air or fluid. BONES: Unremarkable. SOFT TISSUES: Unremarkable. IMPRESSION: 1. No acute abdominopelvic abnormality. 2. Punctate nonobstructing calculus in the upper pole of the right kidney. Punctate nonobstructing calculus in the lower pole of the left kidney. No hydronephrosis. Signed by: Dr. Inez Gonzalez M.D. on 07/31/2019 6:55 AM
--- NOTE | 2019-07-31 06:57 | NUR ---
REPORT GIVEN TO JETT DRIVER
== END 2019-07-31 07:13 | disposition home or self-care (01) ==
LOC: ER 04:49
DX: R11.2 Nausea with vomiting, unspecified (principal); R10.84 Generalized abdominal pain; K58.9 Irritable bowel syndrome, unspecified
CPT/HCPCS: 36415; 74176; 80053; 80307; 81001; 81025; 83690; 85025; 99284; J2405; J7030

== ENCOUNTER 2019-10-27 21:02 | Emergency (ER) | payer SELFPAY ==
[~2019-10-27] VITALS: Ht 154.9 cm; Wt 81.2 kg
--- NOTE | 2019-10-27 21:33 | NUR ---
[employer]ISTRATION WENT IN TO SPEAK TO PT ABOUT MSE STATUS. PT STORMED OUT OF ROOM CURSING AND LEFT ER.
== END 2019-10-27 21:38 | disposition left against medical advice (07) ==
LOC: FSED 21:02
DX: N93.9 Abnormal uterine and vaginal bleeding, unspecified (principal)

== ENCOUNTER 2021-08-07 08:22 | Emergency (ER) | payer SELFPAY ==
[~2021-08-07] VITALS: Ht 154.9 cm; Wt 59.9 kg
[2021-08-07] MEDS ORDERED: ONDANSETRON ODT4 MG PO (09:02)
[2021-08-07] MEDS ORDERED: FAMOTIDINE20 MG PO (09:02)
[2021-08-07] MEDS ORDERED: MAALOX MAXIMUM355 ML PO (09:02)
[2021-08-07] MEDS ORDERED: ONDANSETRON HCL 4 MG ORAL DISINTEGRATING TAB PO ONE (09:30)
== END 2021-08-07 09:48 | disposition home or self-care (01) ==
LOC: FSED 08:27
DX: R11.2 Nausea with vomiting, unspecified (principal); K52.9 Noninfective gastroenteritis and colitis, unspecified; A05.9 Bacterial foodborne intoxication, unspecified; Z87.19 Personal history of other diseases of the digestive system
CPT/HCPCS: 81003; 81025; 99283; Q0162

== ENCOUNTER 2021-10-28 23:56 | Emergency (ER) | payer SELFPAY ==
[~2021-10-28] VITALS: Ht 154.9 cm; Wt 59.9 kg
[~2021-10-28 23:56] MED LIST changes: +FAMOTIDINE20 MG PO; +MAALOX MAXIMUM355 ML PO; +ONDANSETRON ODT4 MG PO
[2021-10-29] MEDS ORDERED: ACETAMIN/BUTALBITAL/CAFFEINE TAB ONE (01:45)
[2021-10-29] MEDS ORDERED: ACETAMIN/BUTALBITAL/CAFFEINE TAB PO ONE (01:45)
== END 2021-10-29 01:35 | disposition home or self-care (01) ==
LOC: ER 10-29 00:08
DX: G43.909 Migraine, unspecified, not intractable, without status migrainosus (principal)
CPT/HCPCS: 70450; 99283

== ENCOUNTER 2021-10-29 09:31 | Emergency (ER) | payer SELFPAY ==
[~2021-10-29] VITALS: Ht 154.9 cm; Wt 59.9 kg
[2021-10-29] MEDS ORDERED: ACETAMIN/BUTALBITAL/CAFFEINE TAB PO ONE (09:45)
== END 2021-10-29 11:19 | disposition home or self-care (01) ==
LOC: ER 09:51
DX: R05.9 Cough, unspecified (principal); J40 Bronchitis, not specified as acute or chronic; R51.9 Headache, unspecified; Z87.19 Personal history of other diseases of the digestive system; F17.210 Nicotine dependence, cigarettes, uncomplicated
CPT/HCPCS: 71045; 99284

== ENCOUNTER 2021-11-21 19:10 | Emergency (ER) | payer SELFPAY ==
[~2021-11-21] VITALS: Ht 154.9 cm; Wt 82.1 kg
[2021-11-21] MEDS ORDERED: CYCLOBENZAPRINE10 MG PO (23:30)
[2021-11-21] MEDS ORDERED: NAPROSYN500 MG PO (23:31)
== END 2021-11-21 20:35 | disposition left against medical advice (07) ==
LOC: FSED 19:44
DX: Z32.00 Encounter for pregnancy test, result unknown (principal)

== ENCOUNTER 2022-04-02 08:22 | Emergency (ER) | payer MEDICARE ==
[~2022-04-02] VITALS: Ht 154.9 cm; Wt 82.1 kg
[~2022-04-02 08:22] MED LIST changes: +CYCLOBENZAPRINE10 MG PO; +NAPROSYN500 MG PO
[2022-04-02 09:07] LABS: STREPTOCOCCUS GRP A ANTIGEN NEGATIVE (NEGATIVE)
[2022-04-02 09:10] LABS: INFLUENZAE A&B ANTIGEN (RAPID) NEGATIVE (NEGATIVE)
[2022-04-02] MEDS ORDERED: ALBUTEROL0.63 MG/3 NEB (09:59)
[2022-04-02] MEDS ORDERED: AZITHROMYCIN250 MG PO (09:59)
[2022-04-02] MEDS ORDERED: PREDNISONE20 MG PO (09:59)
== END 2022-04-02 10:15 | disposition home or self-care (01) ==
LOC: ER 08:25
DX: R05.9 Cough, unspecified (principal); J40 Bronchitis, not specified as acute or chronic; Z20.822 Contact with and (suspected) exposure to COVID-19; Z87.19 Personal history of other diseases of the digestive system; F17.210 Nicotine dependence, cigarettes, uncomplicated
CPT/HCPCS: 71045; 83518; 87070; 87400; 99283; U0002

== ENCOUNTER 2022-07-13 09:30 | Emergency (ER) | payer OTHER ==
[~2022-07-13] VITALS: Ht 154.9 cm; Wt 96.8 kg
[~2022-07-13 09:30] MED LIST changes: +ALBUTEROL0.63 MG/3 NEB; +AZITHROMYCIN250 MG PO; +PREDNISONE20 MG PO
[2022-07-13] MEDS ORDERED: CETIRIZINE HCL10 MG PO (10:31)
[2022-07-13] MEDS ORDERED: HYDROXYZINE HCL25 MG PO (10:32)
== END 2022-07-13 10:47 | disposition home or self-care (01) ==
LOC: FSED 09:36
DX: R05.9 Cough, unspecified (principal); J06.9 Acute upper respiratory infection, unspecified; F41.0 Panic disorder [episodic paroxysmal anxiety]; F41.9 Anxiety disorder, unspecified; F17.210 Nicotine dependence, cigarettes, uncomplicated
CPT/HCPCS: 81003; 81025; 83518; 87400; 99283

== ENCOUNTER 2022-08-30 09:41 | Emergency (ER) | payer OTHER ==
[~2022-08-30] VITALS: Ht 154.9 cm; Wt 96.6 kg
[~2022-08-30 09:41] MED LIST changes: +CETIRIZINE HCL10 MG PO; +HYDROXYZINE HCL25 MG PO
[2022-08-30] MEDS ORDERED: NAPROXEN250 MG PO (10:02)
[2022-08-30] MEDS ORDERED: ULTRAM 50MG50 MG PO (10:02)
[2022-08-30] MEDS: HYDROCODONE/APAP 5MG-325MG TAB PO ONE (10:20)
== END 2022-08-30 10:55 | disposition home or self-care (01) ==
LOC: ER 09:47
DX: S93.401A Sprain of unspecified ligament of right ankle, initial encounter (principal); M25.561 Pain in right knee; K50.90 Crohn's disease, unspecified, without complications; F41.0 Panic disorder [episodic paroxysmal anxiety]; Z79.52 Long term (current) use of systemic steroids; Z79.899 Other long term (current) drug therapy; X50.1XXA Overexertion from prolonged static or awkward postures, initial encounter; Y99.0 Civilian activity done for income or pay
CPT/HCPCS: 99284

== ENCOUNTER 2022-12-11 09:50 | Emergency (ER) | payer OTHER ==
[~2022-12-11] VITALS: Ht 154.9 cm; Wt 100.8 kg
[~2022-12-11 09:50] MED LIST changes: +NAPROXEN250 MG PO; +ULTRAM 50MG50 MG PO
[2022-12-11 13:15] VITALS: O2SAT 98
[2022-12-11] MEDS ORDERED: NAPROSYN500 MG PO (13:37)
[2022-12-11] MEDS ORDERED: ULTRAM 50MG50 MG PO (13:38)
== END 2022-12-11 13:50 | disposition home or self-care (01) ==
LOC: FSED 10:06
DX: M79.621 Pain in right upper arm (principal); I80.8 Phlebitis and thrombophlebitis of other sites; K58.0 Irritable bowel syndrome with diarrhea; M54.12 Radiculopathy, cervical region; F41.9 Anxiety disorder, unspecified
CPT/HCPCS: 80053; 81003; 81025; 85025; 93971; 99284

== ENCOUNTER 2023-04-07 07:51 | Emergency (ER) | payer OTHER ==
[~2023-04-07] VITALS: Ht 154.9 cm; Wt 102.6 kg
[~2023-04-07 07:51] MED LIST changes: +TRAZODONE HCL50 MG PO; +VALTREX1000 MG PO
[2023-04-07] MEDS ORDERED: SODIUM CHLORIDE 0.9% 1000ML 1,000 ML ONE (08:00)
[2023-04-07] MEDS ORDERED: KETOROLAC TROMETHAMINE 30 MG/ML VIAL ONE (08:00)
[2023-04-07] MEDS ORDERED: FAMOTIDINE 20 MG/2 ML VIAL IV ONE (08:00)
[2023-04-07] MEDS ORDERED: ONDANSETRON HCL INJ 2MG/ML 2ML 2 MG/ML VIAL ONE (08:00)
[2023-04-07] MEDS ORDERED: FAMOTIDINE 20 MG/2 ML VIAL IV STA (08:12)
[2023-04-07] MEDS ORDERED: KETOROLAC TROMETHAMINE 30 MG/ML VIAL IV STA (08:12)
[2023-04-07] MEDS ORDERED: ONDANSETRON HCL INJ 2MG/ML 2ML 2 MG/ML VIAL IV STA (08:12)
[2023-04-07] MEDS ORDERED: SODIUM CHLORIDE 0.9% 1000ML 1,000 ML IV ONE (08:15)
[2023-04-07] MEDS ORDERED: ONDANSETRON ODT4 MG PO (09:03)
[2023-04-07 09:10] VITALS: PULSE 72; RESP 19; O2SAT 99
== END 2023-04-07 09:12 | disposition home or self-care (01) ==
LOC: FSED 07:55
DX: R11.2 Nausea with vomiting, unspecified (principal); A05.9 Bacterial foodborne intoxication, unspecified; E86.0 Dehydration; R19.7 Diarrhea, unspecified; K21.9 Gastro-esophageal reflux disease without esophagitis; F41.9 Anxiety disorder, unspecified; E66.9 Obesity, unspecified
CPT/HCPCS: 80048; 80076; 81003; 81025; 85025; 96374; 96375; 96376; 99283; J1885; J2405; J7030

== ENCOUNTER 2023-10-18 09:20 | Emergency (ER) | payer OTHER ==
[~2023-10-18] VITALS: Ht 154.9 cm; Wt 108.0 kg
[~2023-10-18 09:20] MED LIST changes: +BACTRIM DS TAB1 EACH PO; +MUPIROCIN22 GM TOP
[2023-10-18 10:06] LABS: BASOPHILS % 0.2 % (0.0-1.0); EOSINOPHILS # (AUTO) 0.1 (0.0-0.4); EOSINOPHILS % 1.8 % (0.0-6.0); HEMATOCRIT 44.3 % (34.2-44.1); HEMOGLOBIN 14.2 g/dL (12.0-16.0); LYMPHOCYTES # (AUTO) 1.6 (1.0-3.2); LYMPHOCYTES % 25.6 % (18.0-39.1); MEAN CORPUSCULAR HEMOGLOBIN 29.5 pg (28-32); MEAN CORPUSCULAR HGB CONC 32.1 g/dL (31-35); MEAN CORPUSCULAR VOLUME 91.9 fL (81-99); MONOCYTES # (AUTO) 0.5 (0.2-0.8); MONOCYTES % 8.5 % (4.4-11.3); NEUTROPHILS # (AUTO) 3.9 (2.1-6.9); NEUTROPHILS % 62.3 % (38.7-80.0); PLATELET COUNT 201 x10e3/uL (140-360); RED BLOOD COUNT 4.82 x10e6/uL (3.6-5.1); RED CELL DISTRIBUTION WIDTH 13.8 % (11.7-14.4); WHITE BLOOD COUNT 6.24 x10e3/uL (4.8-10.8)
[2023-10-18 10:21] LABS: BILIRUBIN,URINE NEGATIVE (NEGATIVE); CLARITY,URINE CLEAR (CLEAR); COLOR,URINE YELLOW (YELLOW); GLUCOSE, URINE NEGATIVE (NEGATIVE); KETONES,URINE NEGATIVE (NEGATIVE); LEUKOCYTE ESTERASE ,URINE SMALL (NEGATIVE); NITRITE,URINE NEGATIVE (NEGATIVE); PH,URINE 6 (5 - 7); PROTEIN,URINE DIPSTICK NEGATIVE (NEGATIVE); URINE UROBILINOGEN 0.2 mg/dL (0.2 - 1)
[2023-10-18 10:22] LABS: ALBUMIN 4.1 g/dL (3.5-5.0); ALBUMIN/GLOBULIN RATIO 1.2 (0.8-2.0); ANION GAP 15.2 mmol/L (8-16); BILIRUBIN,TOTAL 0.6 mg/dL (0.2-1.2); CALCIUM 9.1 mg/dL (8.4-10.2); CREATININE, SERUM 0.84 mg/dL (0.57-1.11); POTASSIUM 4.2 mmol/L (3.5-5.1); TOTAL PROTEIN 7.4 g/dL (6.5-8.1)
[2023-10-18 10:37] LABS: BACTERIA,URINE MODERATE /HPF; EPITHELIAL CELLS,URINE MODERATE /LPF
[2023-10-18] MEDS: DICYCLOMINE HCL 20 MG/2 ML VIAL IM ONE (10:52)
[2023-10-18 13:11] LABS: BAND NEUTROPHILS % (MANUAL) 1 %; BASOPHILS % (MANUAL) 1 % (0-1.5); EOSINOPHILS % (MANUAL) 2 % (0-7); LYMPHOCYTES % (MANUAL) 24 % (19-48); MONOCYTES % (MANUAL) 11 % (3.4-9.0); NEUTROPHILS % (MANUAL) 61 % (40-74); PLATELET ESTIMATE ADEQUATE; PLATELET MORPHOLOGY COMMENT NORMAL; RBC MORPHOLOGY COMMENT NORMAL
[2023-10-18 13:26] VITALS: BP 143/82; PULSE 72; RESP 16; O2SAT 100
== END 2023-10-18 13:21 | disposition home or self-care (01) ==
LOC: ER 10:09
DX: R19.7 Diarrhea, unspecified (principal); K21.9 Gastro-esophageal reflux disease without esophagitis; F41.9 Anxiety disorder, unspecified; F32.A Depression, unspecified; E66.9 Obesity, unspecified; Z87.19 Personal history of other diseases of the digestive system; F17.210 Nicotine dependence, cigarettes, uncomplicated
CPT/HCPCS: 36415; 74176; 80053; 81001; 81025; 83690; 85025; 99283; J0500

== ENCOUNTER 2024-01-03 06:25 | Emergency (ER) | payer OTHER ==
[~2024-01-03] VITALS: Ht 154.9 cm; Wt 108.0 kg
[2024-01-03 06:29] VITALS: PULSE 90; RESP 19; TEMP 98.2; O2SAT 100
[2024-01-03] MEDS: FLUORESCEIN SOD(OPTH) 1 MG STRP OS ONE (06:41)
[2024-01-03] MEDS ORDERED: POLYMYXIN B-TMP10 ML OS (06:49)
== END 2024-01-03 07:06 | disposition home or self-care (01) ==
LOC: ER 06:29
DX: H00.016 Hordeolum externum left eye, unspecified eyelid (principal); F41.9 Anxiety disorder, unspecified; G43.909 Migraine, unspecified, not intractable, without status migrainosus; K21.9 Gastro-esophageal reflux disease without esophagitis; F32.A Depression, unspecified; Z79.899 Other long term (current) drug therapy
CPT/HCPCS: 99282

== ENCOUNTER 2024-05-04 05:55 | Emergency (ER) | payer OTHER ==
[~2024-05-04] VITALS: Ht 154.9 cm; Wt 108.0 kg
[~2024-05-04 05:55] MED LIST changes: +POLYMYXIN B-TMP10 ML OS
[2024-05-04 06:22] VITALS: PULSE 86; RESP 20; TEMP 98.6; O2SAT 97
[2024-05-04 06:57] LABS: BILIRUBIN,URINE NEGATIVE (NEGATIVE); CLARITY,URINE CLOUDY (CLEAR); COLOR,URINE YELLOW (YELLOW); GLUCOSE, URINE NEGATIVE (NEGATIVE); KETONES,URINE NEGATIVE (NEGATIVE); LEUKOCYTE ESTERASE ,URINE NEGATIVE (NEGATIVE); NITRITE,URINE NEGATIVE (NEGATIVE); PH,URINE 6 (5 - 7); PROTEIN,URINE DIPSTICK 1+ (NEGATIVE); URINE UROBILINOGEN 0.2 mg/dL (0.2 - 1)
[2024-05-04 07:15] LABS: BASOPHILS % 0.3 % (0.0-1.0); EOSINOPHILS # (AUTO) 0.1 (0.0-0.4); EOSINOPHILS % 1.4 % (0.0-6.0); HEMATOCRIT 43.3 % (34.2-44.1); HEMOGLOBIN 13.6 g/dL (12.0-16.0); LYMPHOCYTES # (AUTO) 2.2 (1.0-3.2); LYMPHOCYTES % 29.2 % (18.0-39.1); MEAN CORPUSCULAR HGB CONC 31.4 g/dL (31-35); MEAN CORPUSCULAR VOLUME 95.6 fL (81-99); MONOCYTES # (AUTO) 0.7 (0.2-0.8); MONOCYTES % 9.5 % (4.4-11.3); NEUTROPHILS # (AUTO) 4.4 (2.1-6.9); NEUTROPHILS % 59.3 % (38.7-80.0); PLATELET COUNT 210 x10e3/uL (140-360); RED BLOOD COUNT 4.53 x10e6/uL (3.6-5.1); RED CELL DISTRIBUTION WIDTH 14.1 % (11.7-14.4)
[2024-05-04 07:21] LABS: BACTERIA,URINE MANY /HPF; EPITHELIAL CELLS,URINE MODERATE /LPF; RBC,URINE 21-50 /HPF (0-5)
[2024-05-04] MEDS ORDERED: PROAIR DIGIHAL90 MCG INH (07:33)
[2024-05-04] MEDS ORDERED: CEFDINIR300 MG PO (07:33)
[2024-05-04 07:46] LABS: COVID 19 ANTIGEN NOT DETECTED (NEGATIVE)
[2024-05-04 08:01] LABS: ALANINE AMINOTRANSFERASE 27 IU/L (0-55); ALBUMIN 3.8 g/dL (3.5-5.0); ALBUMIN/GLOBULIN RATIO 1.2 (0.8-2.0); ALKALINE PHOSPHATASE 59 IU/L (40-150); BILIRUBIN,TOTAL 0.4 mg/dL (0.2-1.2); BLOOD UREA NITROGEN 12 mg/dL (7-26); BUN/CREATININE RATIO 15 (6-25); CALCIUM 8.9 mg/dL (8.4-10.2); CARBON DIOXIDE 24 mmol/L (22-29); CHLORIDE 106 mmol/L (98-107); CREATININE, SERUM 0.82 mg/dL (0.57-1.11); EST GLOMERULAR FILTRATION RATE 93 ML/MIN (>=60); GLUCOSE 126 mg/dL (74-118); SODIUM 140 mmol/L (136-145); TOTAL PROTEIN 6.9 g/dL (6.5-8.1)
== END 2024-05-04 08:21 | disposition home or self-care (01) ==
LOC: ER 05:59
DX: L66.2 Folliculitis decalvans (principal); J06.9 Acute upper respiratory infection, unspecified; R05.9 Cough, unspecified; N39.0 Urinary tract infection, site not specified; R06.2 Wheezing; Z11.52 Encounter for screening for COVID-19
CPT/HCPCS: 0223U; 36415; 71045; 80053; 81001; 85025; 87400; 99283

== ENCOUNTER 2024-10-08 09:12 | Emergency (ER) | payer SELFPAY ==
[~2024-10-08] VITALS: Ht 154.9 cm; Wt 117.9 kg
[~2024-10-08 09:12] MED LIST changes: +CEFDINIR300 MG PO; +PROAIR DIGIHAL90 MCG INH
[2024-10-08 09:16] VITALS: TEMP 98.2
[2024-10-08] MEDS ORDERED: SODIUM CHLORIDE FLUSH 10 ML SYR IV PRN (09:30)
[2024-10-08 10:00] LABS: BASOPHILS % 0.3 % (0.0-1.0); EOSINOPHILS # (AUTO) 0.1 (0.0-0.4); EOSINOPHILS % 1.8 % (0.0-6.0); HEMATOCRIT 41.7 % (34.2-44.1); HEMOGLOBIN 13.7 g/dL (12.0-16.0); LYMPHOCYTES % 32.3 % (18.0-39.1); MEAN CORPUSCULAR HEMOGLOBIN 29.4 pg (28-32); MEAN CORPUSCULAR HGB CONC 32.9 g/dL (31-35); MEAN CORPUSCULAR VOLUME 89.5 fL (81-99); MONOCYTES # (AUTO) 0.4 (0.2-0.8); MONOCYTES % 6.8 % (4.4-11.3); NEUTROPHILS # (AUTO) 3.6 (2.1-6.9); NEUTROPHILS % 58.6 % (38.7-80.0); PLATELET COUNT 230 x10e3/uL (140-360); RED BLOOD COUNT 4.66 x10e6/uL (3.6-5.1); WHITE BLOOD COUNT 6.16 x10e3/uL (4.8-10.8)
[2024-10-08 10:03] VITALS: PULSE 68; RESP 18; O2SAT 99
[2024-10-08 10:26] LABS: ANION GAP 17.3 mmol/L (8-16); CREATININE, SERUM 0.8 mg/dL (0.57-1.11); POTASSIUM 4.3 mmol/L (3.5-5.1)
[2024-10-08 10:27] LABS: ALBUMIN/GLOBULIN RATIO 1.2 (0.8-2.0); BILIRUBIN,TOTAL 0.4 mg/dL (0.2-1.2); CALCIUM 8.7 mg/dL (8.4-10.2); TOTAL PROTEIN 7.4 g/dL (6.5-8.1); TROPONIN I 0.002 ng/mL (0-0.300)
== END 2024-10-08 13:02 | disposition home or self-care (01) ==
LOC: ER 09:14
DX: R06.02 Shortness of breath (principal); R07.89 Other chest pain; R20.2 Paresthesia of skin; F41.9 Anxiety disorder, unspecified; F17.210 Nicotine dependence, cigarettes, uncomplicated
CPT/HCPCS: 36415; 71046; 80053; 83880; 84484; 85025; 93005; 94760; 99284

== ENCOUNTER 2025-02-15 07:42 | Emergency (ER) | payer OTHER ==
[~2025-02-15] VITALS: Ht 154.9 cm; Wt 117.9 kg
[2025-02-15 07:45] VITALS: PULSE 78; RESP 16; TEMP 97.4; O2SAT 99
[2025-02-15] MEDS ORDERED: KETOROLAC TROMETHAMINE 30 MG/ML VIAL IV STA (07:57)
[2025-02-15 09:34] LABS: CORONAVIRUS COVID-19 AG NEGATIVE (NEGATIVE)
[2025-02-15 09:57] VITALS: BP 137/91; PULSE 74; RESP 18; TEMP 98
== END 2025-02-15 09:59 | disposition home or self-care (01) ==
LOC: ER 07:58
DX: R20.0 Anesthesia of skin (principal); R07.89 Other chest pain; F41.9 Anxiety disorder, unspecified
CPT/HCPCS: 71045; 93005; 99284

== ENCOUNTER 2025-02-22 16:15 | Emergency (ER) | payer OTHER ==
[~2025-02-22] VITALS: Ht 154.9 cm; Wt 127.0 kg
[2025-02-22 17:15] LABS: BASOPHILS % 0.2 % (0.0-1.0); EOSINOPHILS % 0.6 % (0.0-6.0); LYMPHOCYTES % 10.0 % (18.0-39.1); MONOCYTES % 17.7 % (4.4-11.3); NEUTROPHILS % 71.3 % (38.7-80.0); RED CELL DISTRIBUTION WIDTH 14.4 % (11.7-14.4)
[2025-02-22] MEDS ORDERED: SODIUM CHLORIDE 0.9% IV SCH (17:15)
[2025-02-22 17:26] LABS: LEUKOCYTE ESTERASE ,URINE NEGATIVE (NEGATIVE); PROTEIN,URINE DIPSTICK NEGATIVE (NEGATIVE); URINE UROBILINOGEN 0.2 mg/dL (0.2 - 1)
[2025-02-22 17:27] LABS: INR 0.94
[2025-02-22 17:36] LABS: EST GLOMERULAR FILTRATION RATE 86 ML/MIN (>=60)
[2025-02-22 17:44] LABS: EPITHELIAL CELLS,URINE MODERATE /LPF
[2025-02-22] MEDS: ACETAMINOPHEN 1000 MG/100 ML IV ONE (17:45)
[2025-02-22 17:54] LABS: CORONAVIRUS COVID-19 AG POSITIVE (NEGATIVE)
[2025-02-22] MEDS: ONDANSETRON HCL INJ 2MG/ML 2ML 2 MG/ML VIAL IV STA (18:16)
[2025-02-22] MEDS: SODIUM CHLORIDE 0.9% 1000ML 1,000 ML IV SCH (18:21)
[2025-02-22 19:00] VITALS: PULSE 95; TEMP 98.1
[2025-02-22] MEDS ORDERED: PAXLOVID 300-11 EAC1 PO (19:54)
[2025-02-22 20:00] VITALS: RESP 18; O2SAT 100
== END 2025-02-22 20:18 | disposition home or self-care (01) ==
LOC: ER 17:07
DX: R50.9 Fever, unspecified (principal); U07.1 COVID-19; R11.2 Nausea with vomiting, unspecified; R51.9 Headache, unspecified; F41.9 Anxiety disorder, unspecified; Z87.19 Personal history of other diseases of the digestive system
CPT/HCPCS: 36415; 70450; 71250; 74176; 80053; 81001; 83605; 83735; 84702; 85025; 85610; 85730; 87040; 87086; 93005; 99284; J2405; J2470; J7030

== ENCOUNTER 2025-04-12 19:57 | Emergency (ER) | payer OTHER ==
[~2025-04-12 19:57] MED LIST changes: +PAXLOVID 300-11 EAC1 PO
== END 2025-04-12 20:25 | disposition left against medical advice (07) ==
LOC: FSED 20:25
DX: R11.10 Vomiting, unspecified (principal)